=== PATIENT | female | born 1965 | race Caucasian/White ===

== ENCOUNTER 2017-09-03 08:53 | Day surgery (SDC) | payer BC ==
[~2017-09-03] VITALS: Ht 160 cm; Wt 65.8 kg
[2017-09-03] VITALS (7 sets, daily range): BP systolic 137–150; BP diastolic 66–87
[~2017-09-03 08:53] MED LIST: Cefazolin 2GM/50ML dext iso,osmotic IVPB IV ONE; NO HOME MEDS; famotidine 20mg tablet PO ONE; ringers solution, lacted 1,000 ML IV SCH
[2017-09-03 09:38] LABS: BASOPHILS % (AUTO) 0.5 % (0-1); EOSINOPHILS # (AUTO) 0.1 X10'3 (0-0.9); EOSINOPHILS % (AUTO) 2.4 % (0-6); HEMATOCRIT 42.3 % (35.0-45.0); HEMOGLOBIN 14.9 g/dl (12.0-16.0); LYMPHOCYTES # (AUTO) 2.1 X10'3 (1.1-4.8); LYMPHOCYTES % (AUTO) 35.2 % (21-51); MEAN CORPUSCULAR HEMOGLOBIN 32.2 PG (27.0-31.0); MEAN CORPUSCULAR HGB CONC 35.3 % (33.0-36.5); MEAN CORPUSCULAR VOLUME 91.4 FL (78-98); MEAN PLATELET VOLUME 9.4 FL (7.4-10.4); MONOCYTES # (AUTO) 0.4 X10'3 (0-0.9); MONOCYTES % (AUTO) 6.7 % (2-12); NEUTROPHILS # (AUTO) 3.2 X10'3 (1.8-7.7); NEUTROPHILS % (AUTO) 55.2 % (42-75); PLATELET COUNT 242 X10'3 (140-440); RED BLOOD COUNT 4.62 X10'6 (4.20-5.60); RED CELL DISTRIBUTION WIDTH 12.8 % (11.5-14.5); WHITE BLOOD COUNT 5.9 X10'3 (4.5-11.0)
[2017-09-03 09:44] LABS: ALANINE AMINOTRANSFERASE 26 U/L (12-78); ALBUMIN 3.7 G/DL (3.4-5.0); ALBUMIN/GLOBULIN RATIO 1.1 (1.1-1.5); ALKALINE PHOSPHATASE 93 IU/L (46-116); ANION GAP 9 (8-16); ASPARTATE AMINO TRANSFERASE 17 U/L (10-37); BILIRUBIN,TOTAL 0.5 MG/DL (0.1-1.0); BLOOD UREA NITROGEN 11 MG/DL (7-18); BUN/CREATININE RATIO 13.8 (6.6-38.0); CALCIUM 8.5 MG/DL (8.5-10.1); CHLORIDE 105 MMOL/L (99-107); GLUCOSE 93 MG/DL (70-104); POTASSIUM 3.7 MMOL/L (3.5-5.1); SODIUM 141 MMOL/L (135-145); TOTAL CARBON DIOXIDE 27.4 MMOL/L (24-32); TOTAL PROTEIN 7.2 G/DL (6.4-8.2); eGFR 75 ML/MIN
[2017-09-03] MEDS ORDERED: ceFAZolin 1000mg inj ONE (09:58)
[2017-09-03] MEDS ORDERED: BUPIVAcaine/PF 2.5mg/ml (0.25%) 10ml vial ONE (09:58)
[2017-09-03] MEDS ORDERED: bacitracin 15gm ointment TP ONE (10:56)
[2017-09-03] MEDS ORDERED: sevoflurane 250ml liquid IH ONE (10:57)
[2017-09-03] MEDS ORDERED: dexamethasone sod phosphate 10mg/ml inj ONE (10:57)
[2017-09-03] MEDS ORDERED: fentaNYL/PF 50MCG/1 ML 2ML syringe ONE (10:59)
[2017-09-03] MEDS ORDERED: midazolam 2 mg/2 ml injection ONE (11:01)
[2017-09-03] MEDS ORDERED: ketorolac trometh. 30mg/ml inj. ONE (11:14)
[2017-09-03] MEDS ORDERED: ondansetron/PF 4mg/2ml inj ONE (11:14)
[2017-09-03] MEDS ORDERED: propofol inj 20 ML IV ONE (11:48)
[2017-09-03] MEDS ORDERED: LIDOcaine 2% (20mg/ml) 5ml vial ONE (11:48)
[2017-09-03 12:10] LABS: CLARITY,URINE Clear (Clear); COLOR,URINE Yellow (Yellow); GLUCOSE, URINE Negative (Neg); KETONES,URINE Negative (Neg); LEUKOCYTE ESTERASE ,URINE Moderate (Neg); NITRITES, URINE Negative (Neg); OCCULT BLOOD,URINE Moderate (Neg); PH,URINE 5.5 (4.8-8.0); PROTEIN,URINE Negative (Neg)
[2017-09-03 12:16] LABS: UA COLLECTION TYPE VOIDED
[2017-09-03] MEDS ORDERED: HYDROcodone/acetaminophen 10/325mg tab PO PRN (12:40)
[2017-09-03 12:44] LABS: MUCUS STRANDS FEW /LPF (Neg); SQUAMOUS EPITHELIAL CELL,UR FEW /LPF (FEW); TRANSITIONAL EPI CELLS,URINE FEW /HPF
[2017-09-03 12:45] LABS: RENAL CELLS, URINE FEW /HPF; WBC,URINE 0-4 /HPF (0-4)
[2017-09-03 12:46] LABS: BACTERIA,URINE NONE SEEN /HPF (Neg); RBC,URINE 0-2 /HPF (0-2)
[2017-09-03] MEDS ORDERED: ringers solution, lacted 1,000 ML IV SCH (13:18)
[2017-09-03] MEDS ORDERED: ondansetron/PF 4mg/2ml inj IV PRN (13:20)
[2017-09-03] MEDS ORDERED: meperidine/PF 25mg/ml syringe IV PRN ×3 (13:20)
[2017-09-03] MEDS ORDERED: morphine 4 MG/ML inj SYRINge IV PRN ×2 (13:20)
[2017-09-03] MEDS ORDERED: proCHLORperazine 10 MG/2 ml inj IV PRN (13:20)
== END 2017-09-03 12:50 | disposition home or self-care (01) ==
LOC: PRE-OP 08:53
PROVIDERS: ATTEND Surgery
DX: K42.9 Umbilical hernia without obstruction or gangrene (principal); I49.1 Atrial premature depolarization; N95.8 Other specified menopausal and perimenopausal disorders; Z85.71 Personal history of Hodgkin lymphoma; Z92.21 Personal history of antineoplastic chemotherapy; Z72.89 Other problems related to lifestyle; Z98.890 Other specified postprocedural states
CPT/HCPCS: 36415; 49585; 80053; 81001; 85025; 87077; 87088; 87186; 93005; A6251; A6257; A6258; J0690; J1100; J1885; J2001; J2250; J2405; J2704; J3010; J3490; J7120; A7000